=== PATIENT | male | born 1995 | race African-American/Black ===

== ENCOUNTER 2017-07-15 17:42 | Emergency (ER) | payer OTHER | END 2017-07-15 19:09 | disposition home or self-care (01) | LOC: ER 17:42 | DX: S43.402A Unspecified sprain of left shoulder joint, initial encounter (principal); W20.8XXA Other cause of strike by thrown, projected or falling object, initial encounter; Y93.89 Activity, other specified; Y99.8 Other external cause status; Y92.89 Other specified places as the place of occurrence of the external cause | CPT/HCPCS: 73000; 73030; 99284 ==